=== PATIENT | female | born 1975 | race African-American/Black ===

== ENCOUNTER 2017-01-16 09:38 | Emergency (ER) | payer OTHER ==
[~2017-01-16] VITALS: Ht 175.3 cm; Wt 69.4 kg
[2017-01-16 10:37] VITALS: BP 96/54
== END 2017-01-16 10:37 | disposition home or self-care (01) ==
LOC: ED 09:38
DX: L84 Corns and callosities (principal)

== ENCOUNTER 2017-04-08 18:58 | Emergency (ER) | payer OTHER ==
[~2017-04-08] VITALS: Ht 175.3 cm; Wt 70.0 kg
[2017-04-08 20:09] VITALS: BP 119/90
== END 2017-04-08 20:09 | disposition home or self-care (01) ==
LOC: ED 18:58
DX: R21 Rash and other nonspecific skin eruption (principal); R68.84 Jaw pain

== ENCOUNTER 2017-07-10 14:38 | Emergency (ER) | payer OTHER ==
[2017-07-10 15:21] VITALS: BP 127/82
== END 2017-07-10 16:39 | disposition left against medical advice (07) ==
LOC: ED 14:38
DX: Z53.21 Procedure and treatment not carried out due to patient leaving prior to being seen by health care provider (principal)

== ENCOUNTER 2017-07-14 11:22 | Emergency (ER) | payer OTHER | END 2017-07-14 12:23 | disposition left against medical advice (07) | LOC: ED 11:22 | DX: Z53.21 Procedure and treatment not carried out due to patient leaving prior to being seen by health care provider (principal) ==

== ENCOUNTER 2017-09-20 02:49 | Emergency (ER) | payer OTHER ==
[~2017-09-20] VITALS: Ht 172.7 cm; Wt 71.7 kg
[2017-09-20 03:20] VITALS: BP 128/85
== END 2017-09-20 03:20 | disposition left against medical advice (07) ==
LOC: ED 02:49
DX: Z53.21 Procedure and treatment not carried out due to patient leaving prior to being seen by health care provider (principal)

== ENCOUNTER 2018-08-17 21:39 | Emergency (ER) | payer OTHER | END 2018-08-17 22:42 | disposition other institution (70) | LOC: ED 21:39 | DX: Z02.89 Encounter for other administrative examinations (principal) ==

== ENCOUNTER 2018-08-17 21:39 | Emergency (ER) | payer SELFPAY ==
[~2018-08-17] VITALS: Ht 170.2 cm; Wt 77.1 kg
[2018-08-17 21:50] VITALS: Ht 170.2 cm; Wt 77.1 kg
[2018-08-17 22:40] VITALS: BP 134/94
== END 2018-08-17 22:42 | disposition other institution (70) ==
LOC: ED 21:39
DX: S30.0XXA Contusion of lower back and pelvis, initial encounter (principal); F17.210 Nicotine dependence, cigarettes, uncomplicated; F41.9 Anxiety disorder, unspecified; Z71.6 Tobacco abuse counseling; Z98.890 Other specified postprocedural states; V87.8XXA Person injured in other specified noncollision transport accidents involving motor vehicle (traffic), initial encounter; Y93.55 Activity, bike riding; Y92.89 Other specified places as the place of occurrence of the external cause; Y99.8 Other external cause status
CPT/HCPCS: 99406

== ENCOUNTER 2020-03-15 01:01 | Emergency (ER) | payer OTHER ==
[~2020-03-15] VITALS: Ht 172.7 cm; Wt 115.2 kg
[2020-03-15 01:05] VITALS: Ht 172.7 cm; Wt 115.2 kg
[2020-03-15 01:44] VITALS: BP 120/88
== END 2020-03-15 01:44 | disposition home or self-care (01) ==
LOC: ED 01:01
DX: T19.2XXA Foreign body in vulva and vagina, initial encounter (principal); Z98.890 Other specified postprocedural states; W45.8XXA Other foreign body or object entering through skin, initial encounter; Y93.89 Activity, other specified; Y92.89 Other specified places as the place of occurrence of the external cause; Y99.8 Other external cause status

== ENCOUNTER 2020-08-06 03:50 | Emergency (ER) | payer OTHER ==
[~2020-08-06] VITALS: Ht 175.3 cm; Wt 117.9 kg
[2020-08-06 03:57] VITALS: BP 138/85; Ht 175.3 cm; Wt 117.9 kg
== END 2020-08-06 04:25 | disposition left against medical advice (07) ==
LOC: ED 03:50
DX: Z53.21 Procedure and treatment not carried out due to patient leaving prior to being seen by health care provider (principal)

== ENCOUNTER 2020-08-20 03:37 | Emergency (ER) | payer OTHER ==
[~2020-08-20] VITALS: Ht 175.3 cm; Wt 103.1 kg
[2020-08-20 03:50] VITALS: BP 127/90; Ht 175.3 cm; Wt 103.1 kg
== END 2020-08-20 04:40 | disposition left against medical advice (07) ==
LOC: ED 03:37
DX: Z53.21 Procedure and treatment not carried out due to patient leaving prior to being seen by health care provider (principal)

== ENCOUNTER 2020-08-25 19:53 | Emergency (ER) | payer OTHER ==
[~2020-08-25] VITALS: Ht 175.3 cm; Wt 103.9 kg
[2020-08-25 20:49] VITALS: BP 132/99
== END 2020-08-25 20:49 | disposition home or self-care (01) ==
LOC: ED 19:53
DX: K08.89 Other specified disorders of teeth and supporting structures (principal)
CPT/HCPCS: J1885